=== PATIENT | male | born 1960 | race Caucasian/White ===

== ENCOUNTER 2021-11-19 07:41 | Day surgery (SDC) | payer MEDICARE ==
[2021-11-13 15:42] LABS: BASOPHILS % (AUTO) 0.3 % (0-1); EOSINOPHILS # (AUTO) 0.3 X10'3 (0-0.9); EOSINOPHILS % (AUTO) 3.1 % (0-6); LYMPHOCYTES # (AUTO) 3.6 X10'3 (1.1-4.8); LYMPHOCYTES % (AUTO) 35.5 % (21-51); MEAN CORPUSCULAR HEMOGLOBIN 33.5 PG (27.0-31.0); MEAN CORPUSCULAR HGB CONC 33.8 g/dL (33.0-36.5); MEAN CORPUSCULAR VOLUME 99.2 FL (78-98); MEAN PLATELET VOLUME 8.3 FL (7.4-10.4); MONOCYTES # (AUTO) 0.7 X10'3 (0-0.9); MONOCYTES % (AUTO) 7.1 % (2-12); NEUTROPHILS # (AUTO) 5.4 X10'3 (1.8-7.7); PRE OP HEMATOCRIT 44.8 % (42.0-52.0); PRE OP HEMOGLOBIN 15.1 g/dL (14.0-17.9); PRE OP PLATELET COUNT 390 X10'3 (140-440); RED BLOOD COUNT 4.52 X10'6 (4.70-6.10); RED CELL DISTRIBUTION WIDTH 14.6 % (11.5-14.5)
[2021-11-13 15:55] LABS: ALBUMIN 3.9 G/DL (3.4-5.0); ALKALINE PHOSPHATASE 58 IU/L (46-116); BLOOD UREA NITROGEN 14 MG/DL (7-18); BUN/CREATININE RATIO 18.9 (5.4-32.0); CALCIUM 8.9 MG/DL (8.5-10.1); CHLORIDE 107 MMOL/L (99-107); CREATININE 0.74 MG/DL (0.60-1.10); PRE OP ALT 25 U/L (30-65); PRE OP ANION GAP 8 (8-16); PRE OP AST 25 U/L (10-37); PRE OP BILIRUB, TOTAL 0.5 MG/DL (0.0-1.0); PRE OP GLUCOSE 86 MG/DL (70-104); PRE OP POTASSIUM 4.1 MMOL/L (3.4-5.1); PRE OP SODIUM 146 MMOL/L (135-145); TOTAL CARBON DIOXIDE 30.7 MMOL/L (24-32); TOTAL PROTEIN 7.9 G/DL (6.4-8.2); eGFR > 90 ML/MIN
[~2021-11-19] VITALS: Ht 185.4 cm; Wt 119.4 kg
[2021-11-19] VITALS (13 sets, daily range): BP systolic 120–142; BP diastolic 72–101
[~2021-11-19 07:41] MED LIST: ALPR-624 PO; ASPI-1265 PO; BENA20TA83 PO; ZOLP5TAB8 PO; cefazolin/dext.iso 2gm/50ml IV ONE; famotidine 20mg tablet PO ONE; ringers solution, lacted 1,000 ML IV SCH
[2021-11-19] MEDS ORDERED: BUPIVAcaine 0.5% inj/PF 30 ML ONE ×2 (11:13→13:40)
[2021-11-19] MEDS ORDERED: sevoflurane 250ml liquid IH ONE (11:44)
[2021-11-19] MEDS ORDERED: midazolam 1 mg/ML 2ml injection ONE (11:49)
[2021-11-19] MEDS ORDERED: fentaNYL /PF 50mcg/ml 5ml ampule ONE (11:52)
[2021-11-19] MEDS ORDERED: ondansetron/PF 4mg/2ml inj IV PRN (12:10)
[2021-11-19] MEDS ORDERED: labetalol 20mg/4ml (5mg/ml) syringe IV PRN (12:10)
[2021-11-19] MEDS ORDERED: morphine 2 MG/ML inj. syringe IV PRN (12:10)
[2021-11-19] MEDS ORDERED: meperidine/PF 25mg/ml syringe IV PRN ×3 (12:10)
[2021-11-19] MEDS ORDERED: LIDOcaine 2% (20mg/ml) 5ml vial ONE ×2 (12:10→12:20)
[2021-11-19] MEDS ORDERED: proCHLORperazine 10 MG/2 ml inj IV PRN (12:10)
[2021-11-19] MEDS ORDERED: ringers solution, lacted 1,000 ML IV SCH (12:10)
[2021-11-19] MEDS ORDERED: hydrALAZINE 20mg/ml inj. IV PRN (12:10)
[2021-11-19] MEDS ORDERED: propofol inj 20 ML IV ONE ×2 (12:10→12:20)
[2021-11-19] MEDS ORDERED: rocuronium 10mg/ml inj IV ONE ×2 (12:10→12:20)
[2021-11-19] MEDS ORDERED: acetaminophen 1,000mg/100ml IV 100 ML IV PRN (12:10)
[2021-11-19] MEDS ORDERED: ondansetron/PF 4mg/2ml inj ONE (12:20)
[2021-11-19] MEDS ORDERED: dexamethasone sod phosphate 4mg/ml inj. ONE (12:20)
[2021-11-19] MEDS ORDERED: BUPIVACAINE liposomal/PF 13.3 MG/ML vial IM ONE (13:40)
[2021-11-19] MEDS ORDERED: morphine 10mg/ml inj. ONE (13:59)
[2021-11-19] MEDS ORDERED: glycopyrrolate 0.2mg/ml inj ONE (14:12)
[2021-11-19] MEDS ORDERED: neostigmine methylsulfate 1 MG/ML 10ml vial ONE (14:12)
--- NOTE | 2021-11-19 14:22 | NUR ---
Received from OR via [facility] , accompanied by Anesthesiologist ANDI and report given by Anesthesiolgist. PATIENT WITH 20G PIV IN LEFT UE RUNNING LR AT 100. MEDICATED FOR PAIN UPON ARRIVAL. VSS. LAP SITES TO ABDOMEN ARE ALL CDI CURRENTLY. 10L MASK ON WITH 100% SATURATIONS. Addendum: 11/19/21 at 1438 by Dale Catherine RN, RN Amended: Links added.
[2021-11-19] MEDS ORDERED: BUPIVAcaine 0.5% inj/PF 30 ml vial IJ ONE (14:26)
[2021-11-19] MEDS: morphine 4 MG/ML inj SYRINge IV PRN ×2 (14:39→14:57)
[2021-11-19] MEDS ORDERED: traMADol 50MG tablet PO ONE (14:50)
[2021-11-19] MEDS ORDERED: ketorolac trometh. 30mg/ml inj. IV ONE (14:50)
--- NOTE | 2021-11-19 16:02 | NUR ---
ALL DISCHARGE CRITERIA HAS BEEN MET. VSS, PAIN AT A TOLERABLE LEVEL, ABLE TO SAFELY AMBULATE AND TRANSFER SELF. IV TAKEN OUT WITHOUT ANY COMPLICATIONS. ALL DISCHARGE INSTRUCTIONS COVERED WITH PATIENT AND ALL QUESTIONS ANSWERED. PATIENT TAKEN OUT VIA WHEELCHAIR TO PERSONAL VEHICLE WHERE FAMILY/FRIEND DROVE PATIENT HOME. GIVEN IS AND INSTRUCTED ON PROPER USAGE AND IMPORTANCE OF THIS. VSS. OUT VIA WHEELCHAIR TO PERSONAL VEHICLE WHERE FRIEND DROVE HIM HOME. 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 Addendum: 11/19/21 at 1630 by Dale Catherine RN, RN Amended: Links added.
== END 2021-11-19 16:02 | disposition home or self-care (01) ==
LOC: PAS 07:41
PROVIDERS: ATTEND Surgery
DX: K43.2 Incisional hernia without obstruction or gangrene (principal); K66.0 Peritoneal adhesions (postprocedural) (postinfection); M19.90 Unspecified osteoarthritis, unspecified site; I10 Essential (primary) hypertension; I48.91 Unspecified atrial fibrillation; F41.9 Anxiety disorder, unspecified; Z79.899 Other long term (current) drug therapy; Z98.890 Other specified postprocedural states; Z79.82 Long term (current) use of aspirin; Z20.822 Contact with and (suspected) exposure to COVID-19
CPT/HCPCS: 36415; 49656; 64488; 80053; 82948; 85025; 93005; C1781; C9290; C9803; J0131; J0690; J1100; J1885; J2175; J2250; J2270; J2274; J2405; J2704; J2710; J3010; J3490; J7030; J7120; S0020; U0003; U0005; Z7506; Z7508; Z7512; A4215; A4618; A7000